=== PATIENT | female | born 1985 | race Caucasian/White ===

== ENCOUNTER 2016-12-27 20:34 | Emergency (ER) | payer BC ==
[~2016-12-27] VITALS: Ht 160 cm; Wt 55.8 kg
[~2016-12-27 20:34] MED LIST: PENI500T PO
--- NOTE | 2016-12-27 22:04 | NUR ---
RAPID STREP AND THROAT CULTURES OBTAINED, SENT TO LAB FOR PROCESSING...
--- NOTE | 2016-12-27 22:24 | NUR ---
Patient discharged to home in stable conditon. Written and verbal after care instructions given. Patient verbalizes understanding of instructions. walked out of ER with steady gait
== END 2016-12-27 22:26 | disposition home or self-care (01) ==
LOC: ER 20:34
DX: J02.8 Acute pharyngitis due to other specified organisms (principal); B96.89 Other specified bacterial agents as the cause of diseases classified elsewhere
CPT/HCPCS: 36415; 86403; 87070; 99284; A4663